=== PATIENT | male | born 1945 | race Caucasian/White ===

== ENCOUNTER 2020-02-03 11:56 | Outpatient (CLI) | payer MEDICARE, SELFPAY ==
--- NOTE | ~2020-02-03 | US_ITS ---
EXAMINATION: US venous doppler [facility] DATE: 02/03/2020 12:35 INDICATION: Left lower limb pain. TECHNIQUE: Grayscale ultrasound images without and with compression and Doppler ultrasound images of the left lower extremity veins were obtained. COMPARISON: None. FINDINGS: The visualized portions of left common femoral vein, profunda (deep) femoral vein, femoral vein, popl iteal vein, peroneal veins, posterior tibial veins, and greater saphenous vein outflow are patent. IMPRESSION: 1. No deep venous thrombosis. Reviewed, dictated and finalized at location A.
== END 2020-02-03 11:57 | disposition home or self-care (01) ==
PROVIDERS: PCP Family Medicine Adolescent Medicine; Visit Provider Family Medicine Adolescent Medicine
DX: R60.0 Localized edema (principal)
CPT/HCPCS: 93971

== ENCOUNTER 2020-11-03 14:26 | Outpatient (CLI) | payer MEDICARE, SELFPAY | END 2020-11-03 14:27 | disposition home or self-care (01) | LOC: ANHCOVIDVC 14:26 | PROVIDERS: PCP Family Medicine Adolescent Medicine | DX: Z23 Encounter for immunization (principal) | CPT/HCPCS: 0001A; 91300 ==

== ENCOUNTER 2020-11-24 14:14 | Outpatient (CLI) | payer MEDICARE, SELFPAY | END 2020-11-24 14:15 | disposition home or self-care (01) | LOC: ANHCOVIDVC 14:14 | PROVIDERS: PCP Family Medicine Adolescent Medicine | DX: Z23 Encounter for immunization (principal) | CPT/HCPCS: 0002A; 91300 ==

== ENCOUNTER 2020-12-20 00:13 | Emergency (ER) | payer MEDICARE, SELFPAY ==
--- NOTE | ~2020-12-20 | CT_ITS ---
EXAMINATION: CT cervical spine wo con DATE: 12/20/2020 01:02 INDICATION: Neck pain TECHNIQUE: Computed tomography (CT) of the cervical spine was performed without intravenous contrast. The dose-length product (DLP) was 400.99 mGy-cm. Automated exposure control and iterative reconstruc tion technique were employed. COMPARISON: None FINDINGS: There are 2 mm of retrolisthesis of C5 on C6. There is severe loss of intervertebral disc s pace height at C3-4 and C5-6 and moderate loss of disc space height at C6-7. The vertebral body heigh ts are maintained. The odontoid is intact. There is no fracture. The prevertebral soft tissues are no rmal. There is moderate to severe multilevel facet and uncovertebral joint osteoarthritis. There is a 1.6 cm rim calcified nodule of the left thyroid lobe. IMPRESSION: 1. Moderate cervical spondylosis without acute findings. Reviewed, dictated and finalized at location A.
[2020-12-20 00:14] VITALS: BP 198/82; PULSE 64; RESP 18; TEMP 36.2; O2SAT 98
--- NOTE | 2020-12-20 00:43 | ECG_ITS ---
Measurements Intervals [place] Rate: 64 P: 14 SD: 192 QRS: 2 QRSD: 98 T: 3 QT: 381 QTc: 395 Interpretive Statements SINUS RHYTHM INFERIOR INFARCT, AGE INDETERMINATE BASELINE WANDER- I, II, AVR, AVL, AVF, V1-V6 ABNORMAL ECG Electronically Signed On 12-20-2020 6:37:43 CDT by Maged Cotton D.O.
[2020-12-20] MEDS: diazePAM (*CRX) 5 MG TABLET PO (00:48)
--- NOTE | 2020-12-20 01:03 | ED.NECK ---
HPI - Neck Pain/Injury General Chief Complaint: Neck Pain/Injury Stated Complaint: Neck pain Time Seen by Provider: 12/20/20 00:22 Source: RN notes reviewed History of Present Illness HPI Narrative: Patient presents to emergency department from home for neck pain. Patient states he has had bilateral neck pain that began 2 days ago and is progressively worsened. 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 and has been using some power equipment that is been jostling him around but denies any direct trauma or injury he denies any fevers or chills headache numbness or tingling in the extremities chest pain shortness of breath or any other symptoms patient took ibuprofen approximately 2 hours ago and Tylenol approximately 4 hours ago with minimal relief Related Data Home Medications Medication Instructions Recorded Confirmed amlodipine 5 mg PO DAILY 07/25/19 07/25/19 atenolol 25 mg PO DAILY 07/25/19 07/25/19 atorvastatin 20 mg PO DAILY 07/25/19 07/25/19 metformin 500 mg PO BID 07/25/19 07/25/19 tamsulosin 0.4 mg PO BID 07/25/19 07/25/19 aspirin PO 12/20/20 12/20/20 Allergies Allergy/AdvReac Type Severity Reaction Status Date / Time Penicillins Allergy Unknown HIVES Verified 12/20/20 00:28 Review of Systems Review of Systems: Narrative: Gen.: Denies fevers or chills Eyes: Denies eye pain or visual change ENT: Denies congestion Respiratory: Denies shortness of breath or cough CV: Denies chest pain or palpitations GI: Denies abdominal pain nausea, emesis Musculoskeletal: See HPI Neuro: Denies numbness, tingling, weakness or focal weakness Skin: Denies rash Except as documented, all other systems reviewed and negative PMF Past Medical History Medical History (Updated 12/20/20 @ 01:54 by Jf Diaz DO) Hypercholesterolemia Hypertension Social History Social History (Updated 12/20/20 @ 01:51 by Jf Diaz DO) Smoking status: Never smoker Gender identity (if verbalized by the patient): Male Exam Narrative: Exam Narrative: APPEARANCE: No acute distress, nontoxic, resting in bed EYES: EOMI HEENT: Normocephalic, atraumatic, OMM Neck: Supple, no midline to palpation, tender palpation bilateral paravertebral muscles C3-7 pain with rotation of the neck bilaterally greater than 30 degrees RESPIRATORY: No respiratory distress Clear to auscultation bilaterally with no rhonchi wheezing or rales. CARDIOVASCULAR: Regular rate and rhythm without murmurs rubs or gallops. ABDOMINAL: Soft, nontender, nondistended MUSCULOSKELETAl: Moves all extremities. NEURO: Awake and alert. Following commands, speech normal, no focal deficits SKIN:: Warm, dry. No rashes lesions or abrasions PSYCHIATRIC: Normal affect/mood, Course Course Emergency Course: Patient states he is feeling much better following Valium Discussed with patient results of workup and diagnosis. Discussed need for follow-up with primary care, proper use of medication, and reasons to return to the emergency department. Patient understands and agrees to current treatment plan Vital Signs Vital signs: Vital Signs Temperature 97.1 F L 12/20/20 00:14 Pulse Rate 64 12/20/20 00:14 Respiratory Rate 18 12/20/20 00:14 Blood Pressure 198/82 H 12/20/20 00:14 Pulse Oximetry 98 12/20/20 00:14 Temperature 97.1 F L 12/20/20 00:14 Pulse Rate 65 12/20/20 01:35 Respiratory Rate 18 12/20/20 01:35 Blood Pressure 136/71 12/20/20 01:35 Pulse Oximetry 98 12/20/20 01:35 MDM - Neck Pain/Injury Imaging Data Radiologist's impression: CT cervical spine shows no acute fracture or traumatic malalignment. Multilevel degenerative changes ECG Data EKG #1: Interpretation: Sinus rhythm 64, [place] is normal, left axis deviation QTC is normal nonspecific ST changes inferior leads, unchanged 10/07/2015 Discharge Plan Discharge Clinical Impression: Cervical strain, acute
[2020-12-20 01:35] VITALS: BP 136/71; PULSE 65; RESP 18; O2SAT 98
[2020-12-20 02:16] VITALS: BP 163/73; PULSE 62; RESP 16; O2SAT 98
== END 2020-12-20 02:07 | disposition home or self-care (01) ==
PROVIDERS: Emergency Provider Emergency Medicine; PCP Family Medicine Adolescent Medicine
DX: S16.1XXA Strain of muscle, fascia and tendon at neck level, initial encounter (principal); E78.00 Pure hypercholesterolemia, unspecified; I10 Essential (primary) hypertension; Z79.82 Long term (current) use of aspirin; Z79.84 Long term (current) use of oral hypoglycemic drugs; R94.31 Abnormal electrocardiogram [ECG] [EKG]; X50.9XXA Other and unspecified overexertion or strenuous movements or postures, initial encounter
CPT/HCPCS: 72125; 93005; 99284; A9270

== ENCOUNTER 2021-01-11 14:47 | Emergency (ER) | payer MEDICARE, SELFPAY ==
[2021-01-11] VITALS (56 sets, daily range): BP systolic 137–205; BP diastolic 66–102; PULSE 63–104; RESP 13–44; TEMP 37.1; O2SAT 90–100
--- NOTE | ~2021-01-11 | CT_ITS ---
EXAMINATION: CT brain wo con DATE: 01/11/2021 18:05 INDICATION: Patient given TPA. Altered mental status. TECHNIQUE: Computed tomography (CT) of the head was performed without intravenous contrast. The dose- length product was 605.33 mGy-cm. Automated exposure control and iterative reconstruction technique were employed. COMPARISON: 01/11/2021 FINDINGS: There is acute right parietal parenchymal hemorrhage with intraventricular extension hemorr june measures 2.3 x 1.6 x 0.8 cm. There is subtle right cerebellar parenchymal hemorrhage superiorly. No midline shift. No ventriculomegaly. Basilar cisterns are patent. There are scattered mild periven tricular and subcortical white matter changes, most likely related to small vessel ischemic disease ( microangiopathy). Mild mucosal thickening right sphenoid sinus. Mastoids are pneumatized. No depresse d skull fractures. IMPRESSION: 1. Acute parenchymal hemorrhage involving the right parietal lobe with intraventricular extension. Ad ditional focus of hemorrhage in the right cerebellum superiorly. As per stroke protocol, I called these results to emergency room, discussed with Dr. Nubia Rankin MD at 01/11/2021 18:09 CDT. Reviewed, dictated and finalized at location A. IMPRESSION: 1. Acute parenchymal hemorrhage involving the right parietal lobe with intraven tricular extension. Additional focus of hemorrhage in the right cerebellum supe riorly. As per stroke protocol, I called these results to emergency room, discussed wit h Dr. Nubia Rankin MD at 01/11/2021 18:09 CDT.
--- NOTE | ~2021-01-11 | CT_ITS ---
EXAMINATION: CT brain wo con DATE: 01/11/2021 14:58 INDICATION: Stroke with left lower limb weakness and unsteady gait TECHNIQUE: Computed tomography (CT) of the head was performed without intravenous contrast. Sagittal and coronal reconstructions were performed. The mA was adjusted according to patient size. Iterative reconstruction technique was employed. The dose-length product was 605.33 mGy-cm. COMPARISON: None FINDINGS: No acute intracranial hemorrhage, acute infarction or abnormal extra axial fluid collection. There is mild scattered white matter hypoattenuation consistent with chronic small vessel ischemic disease. S ymmetric prominence of the sulci and ventricles consistent with mild age-appropriate diffuse cerebral volume loss. No mass/mass effect. Changes of bilateral intraocular lens replacement. Mild mucosal th ickening the right sphenoid and bilateral ethmoid sinuses. The orbits and mastoid air cells are alex l. IMPRESSION: 1. No acute intracranial process. 2. Age-related changes including mild diffuse volume loss and mild scattered white matter hypoattenua tion consistent with chronic small vessel ischemic disease. Reviewed, dictated and finalized at location A. IMPRESSION: 1. No acute intracranial process. 2. Age-related changes including mild diffuse volume loss and mild scattered wh ite matter hypoattenuation consistent with chronic small vessel ischemic diseas e.
--- NOTE | ~2021-01-11 | XR_ITS ---
XR chest 1V portable 01/11/2021 15:36 Indication: Hypertension. Stroke. Dyspnea. Procedure: AP portable chest Comparison: Comparison to multiple prior studies sequentially, with oldest reviewed study dated 09/19. Findings: Cardiomegaly with mild interstitial edema. There is a prosthetic aortic valve. No significa nt effusion or pneumothorax. No acute osseous abnormality. Impression: 1: Mild interstitial edema. Reviewed, dictated and finalized at location A. Impression: 1: Mild interstitial edema.
--- NOTE | 2021-01-11 14:49 | ECG_ITS ---
Measurements Intervals [place] Rate: 65 P: 21 MD: 212 QRS: 26 QRSD: 127 T: 74 QT: 397 QTc: 414 Interpretive Statements SINUS RHYTHM BORDERLINE AV CONDUCTION DELAY LEFT BUNDLE BRANCH BLOCK ABNORMAL ECG Electronically Signed On 01-11-2021 20:24:51 CDT by Maged Cotton D.O.
--- NOTE | 2021-01-11 15:06 | ED.NEUROSD ---
HPI - Neuro Symptoms/Deficit General Chief Complaint: Suspected CVA Stated Complaint: Difficulty walking,PASTRANA Time Seen by Provider: 01/11/21 14:56 Source: patient and RN notes reviewed Mode of arrival: ambulatory Limitations: no limitations History of Present Illness HPI Narrative: THis is a 75 year old male with history of hypertension, CAD, aortic valve disease s/p TAVR who presents for evaluation of left leg weakness. He noticed around noon today he was having difficulty walking with left leg weakness. His family reports that he is also not acting right. PAtient reports intermittent left side headache for 2 days. He denies any trauma. He also reports mild left chest pain. He also notes he has been dealing with neck pain for 4 weeks and he has been performing exercises. He denies left arm weakness, numbness or tingling. He also denies slurred speech. He denies history of stroke or TIA. PAtient denies any history head injury or head bleeding. He denies history of any procedures in the past 4 weeks. Related Data Home Medications Medication Instructions Recorded Confirmed amlodipine 5 mg PO DAILY 07/25/19 07/25/19 atenolol 25 mg PO DAILY 07/25/19 07/25/19 atorvastatin 20 mg PO DAILY 07/25/19 07/25/19 metformin 500 mg PO BID 07/25/19 07/25/19 tamsulosin 0.4 mg PO BID 07/25/19 07/25/19 aspirin PO 12/20/20 12/20/20 Allergies Allergy/AdvReac Type Severity Reaction Status Date / Time Penicillins Allergy Unknown HIVES Verified 12/20/20 00:28 Review of Systems Review of Systems: All systems reviewed & are unremarkable except as noted in HPI and below PMFSH Past Medical History Medical History (Updated 01/12/21 @ 00:00 by Lucian Peguero) Hypercholesterolemia Hypertension Social History Social History (Updated 12/20/20 @ 01:51 by Jf Diaz DO) Smoking status: Never smoker Gender identity (if verbalized by the patient): Male Exam Narrative: Exam Narrative: GENERAL: Well-appearing, well-nourished, and in no acute distress. HEAD: Normocephalic, atraumatic EYES: PERRLA and EOMI, conjunctiva clear without discharge THROAT:Mucous membranes moist, Oropharynx normal without erythema, exudate, peritonsillar swelling or fluctuance NECK: Supple, without lymphadenopathy or mass RESPIRATORY: No respiratory distress, Airway patent, Respirations non-labored, Clear to auscultation without rales, rhonchi or wheeze HEART: Regular rate and rhythm. No murmur heard. Normal peripheral pulses. ABDOMEN: Soft, nontender, nondistended, normal active bowel sounds. No masses. No rebound or guarding, No organomegaly. EXTREMITIES: No edema, SKIN: Warm, dry, normal color without rash NEURO: Alert and oriented x3. CN 2-12 grossly intact. PSYCH: Normal mood and affect. Neuro: General: oriented to person, oriented to place, oriented to time and patient oriented x3 Cranial nerves: Yes CN's II-XII intact bilaterally Speech: normal speech Motor exam (neuro): Other motor observations present (left leg weakness) Sensory Exam: normal sensation Coordination: [id number] test normal and other (abnormal heel to benavidez on left) Course Reevaluation(s) Reevaluation #1: I Discussed with patient, family recommendations for TPA. I Discussed risk and benefits and they agree to tPA. BP 155/69. Patient does not have any contraindications. Date: 01/11/21 Time: 15:36 Reevaluation #2: PAtient states he is feeling better. He reports he has more movement of his leg. Date: 01/11/21 Time: 17:40 Reevaluation #3: Patient's family report patient is having mental status change. Patient is now having slurred speech and difficulty raising his left arm Date: 01/11/21 Time: 17:56 Additional Reevaluation(s): Patient continued to have severe headache. He and family asked for pain medication. I Discussed risk of given morphine in state that this may worsen respiratory status. Family understood. Patient does appear to have worsen
--- NOTE | 2021-01-11 15:11 | PC.NURSE ---
Blood glucose was 223 at 15:12
[2021-01-11 15:13] LABS: Glucose Point of Care 223 mg/dl (65-105)
[2021-01-11 15:19] LABS: Basophils Percent Auto 0.2 % (0.2-1.2); Eosinophils Absolute Auto 0.1 K/mm3 (0-0.3); Eosinophils Percent Auto 1.5 % (0-4.4); Hematocrit 39.4 % (42.0-52.0); Hemoglobin 13.3 g/dL (14.0-18.0); Immature Granulocyte Absolute 0.06 K/mm3 (0.00-0.031); Immature Granulocyte Percent A 0.6 % (0-0.5); Lymphocytes Absolute Auto 1.62 K/mm3 (0.9-3.2); Lymphocytes Percent Auto 17.1 % (18.3-44.2); Mean Corpuscular HGB Conc 33.8 g/dl (32-36); Mean Corpuscular Hemoglobin 30.8 pg (26-34); Mean Corpuscular Volume 91.2 fl (80-100); Mean Platelet Volume 8.9 fl (7.4-10.4); Neutrophils Absolute Auto 6.6 K/mm3 (1.3-6.7); Neutrophils Percent Auto 69.6 % (45.5-73.1); Platelet Count Result 160 k/mm3 (150-375); Red Blood Count 4.32 M/mm3 (4.6-6.20); Red Cell Distribution Width 12.5 % (11.5-14.5); White Blood Count 9.5 K/mm3 (4.5-10.0)
[2021-01-11 15:29] LABS: Anion Gap 6 mmol/L (8-16); Blood Urea Nitrogen 20 mg/dL (9-20); Calcium 9.2 mg/dL (8.4-10.2); Carbon Dioxide 30 mmol/L (22-30); Chloride 103 mmol/L (98-107); Estimated CRCL calculation 65 ml/min; Estimated Glomerular Filt Rate > 60; Glucose 226 mg/dL (75-110); Partial Thromboplastin Time 27.1 SECONDS (22.3-36.8); Potassium 3.9 mmol/L (3.4-5.0); Prothrombin Time 13.4 Seconds (11.1-14.7); Sodium 139 mmol/L (137-145)
--- NOTE | 2021-01-11 15:32 | PC.NURSE ---
Per VIKTOR Rankin, do not give hydralazine at this time.
[2021-01-11 15:48] LABS: Troponin I 0.048 ng/mL (0.000-0.034)
--- NOTE | 2021-01-11 15:50 | PC.NURSE ---
Per EDP Chucho, maintain systolic blood pressure BP less than 185 and have diastolic less than 85.
--- NOTE | 2021-01-11 15:55 | PC.NURSE ---
Spoke to Fatoumata at [facility] transfer center. Awaiting on bed at this time.
--- NOTE | 2021-01-11 16:01 | PC.NURSE ---
Patient placed on 2L O2 via NC following chest xray.
--- NOTE | 2021-01-11 16:34 | PC.NURSE ---
Patient complaining of headache, ALP Chucho aware.
[2021-01-11 17:10] LABS: NT Pro B Type Natriuretic Pept 230 pg/mL (5-100)
--- NOTE | 2021-01-11 17:45 | PC.NURSE ---
Patient has change in mental status. Patient alert and oriented but having severe difficulty speaking. Patient still following commands at this time. EDP Chucho aware, patient being taken CT for repeat CT scan.
[2021-01-11 17:57] LABS: Glucose Point of Care 229 mg/dl (65-105)
[2021-01-11] MEDS: hydrALAZINE HCL 20 MG/ML VIAL 10 MG IV PUSH ×2 (18:12→18:47)
--- NOTE | 2021-01-11 18:49 | PC.NURSE ---
Per EDP Rankin verbal order read back, give 2mg Morphine and 4mg Zofran IVP.
[2021-01-11] MEDS: MORPHINE SULFATE (*CRX) 2 MG/ML INJ (18:56)
[2021-01-11] MEDS: ONDANSETRON INJ 4 MG/2 ML VIAL (18:56)
[2021-01-11] MEDS: niCARdipine 20 MG/200 ML 20 MG/200 ML BAG 50 MG IV CONT (18:57)
[2021-01-11] MEDS: TRANEXAMIC ACID 1,000 MG/10 ML AMPUL 1000 MG IV PUSH (19:36)
--- NOTE | 2021-01-11 19:40 | PC.NURSE ---
Patient had episode of emesis, unable to place patient on BiPAP at this time. Patient's family does not wish to proceed with intubation at this time to protect patients airway. Patient continues to have snoring respirations in room. ED respiratory in room to place patient on High flow oxygen. High flow settinL/min 82% O2
--- NOTE | 2021-01-11 19:44 | PC.NURSE ---
cancelled [facility]
--- NOTE | 2021-01-11 19:45 | PCRCNOTE ---
At 19:40 Placed PT on HFNT at 40L and 82% fio2. Pt spo2 95%, HR 99 and RR 36. Pt had vomited so not placed on bipap at this time due to aspiration risk.
== END 2021-01-11 20:01 | disposition short-term general hospital (02) ==
PROVIDERS: Emergency Medicine; Emergency Provider General Practice; PCP Family Medicine Adolescent Medicine
DX: I61.4 Nontraumatic intracerebral hemorrhage in cerebellum (principal); I61.5 Nontraumatic intracerebral hemorrhage, intraventricular; I61.1 Nontraumatic intracerebral hemorrhage in hemisphere, cortical; J96.00 Acute respiratory failure, unspecified whether with hypoxia or hypercapnia; E78.00 Pure hypercholesterolemia, unspecified; I10 Essential (primary) hypertension; Z79.84 Long term (current) use of oral hypoglycemic drugs; Z79.82 Long term (current) use of aspirin; I44.7 Left bundle-branch block, unspecified; I45.9 Conduction disorder, unspecified
CPT/HCPCS: 36415; 37195; 70450; 71045; 80048; 82948; 83880; 84484; 85025; 85610; 85730; 93005; 96365; 96375; 99291; J0131; J0360; J2270; J2405; J2997